=== PATIENT | female | born 1960 ===

== ENCOUNTER 2022-04-16 04:12 | Day surgery (SDC) | payer OTHER ==
[2022-04-15 14:58] VITALS: BMI 28.0
[2022-04-16] MEDS ORDERED: LIDOCAINE HCL/PF 2% SDV 5ML VIAL ONE (11:45)
[2022-04-16] MEDS ORDERED: MIDAZOLAM HCL 2 MG/2 ML SINGLE DOSE VIAL ONE (11:46)
[2022-04-16] MEDS ORDERED: PROPOFOL 20 ML ONE (11:46)
[2022-04-16] MEDS ORDERED: LIDOCAINE HCL 1%, 10 MG/ML (20ML VIAL) ONE (12:28)
[2022-04-16] MEDS ORDERED: ceFAZolin SODIUM 1 GM VIAL IVPB ONE (13:15)
[2022-04-16] MEDS ORDERED: ceFAZolin SODIUM 1 GM VIAL ONE ×2 (13:17→13:27)
[2022-04-16] MEDS ORDERED: LIDOCAINE HCL 1%, 10 MG/ML (20ML VIAL) NR ONE (13:20)
[2022-04-16] MEDS ORDERED: ONDANSETRON 4 MG/2 ML VIAL IVPUSH PRN (13:58)
[2022-04-16] MEDS ORDERED: oxyCODONE HCL 5 MG TABLET PO PRN (13:58)
[2022-04-16] MEDS ORDERED: KETOROLAC TROMETHAMINE 30 MG/1 ML VIAL IM ONE (13:59)
[2022-04-16] MEDS ORDERED: LACTATED RINGERS SOLUTION 1,000 ML IV SCH (14:00)
[2022-04-16] MEDS ORDERED: KETOROLAC TROMETHAMINE 30 MG/1 ML VIAL ONE (14:22)
[2022-04-16 16:06] VITALS: TEMP 97.8
[2022-04-16 16:13] VITALS: BP 126/80; PULSE 68; RESP 16
== END 2022-04-16 16:00 | disposition home or self-care (01) ==
LOC: JASU-SURG 04:12
PROVIDERS: ATTEND Surgery
PROC: 07B50ZX Excision of Right Axillary Lymphatic, Open Approach, Diagnostic (ICD-10-PCS; 2022-04-16)
PROC: 0HBT0ZX Excision of Right Breast, Open Approach, Diagnostic (ICD-10-PCS; principal; 2022-04-16 11:00)
DX: N60.31 Fibrosclerosis of right breast (principal); N60.81 Other benign mammary dysplasias of right breast; N64.89 Other specified disorders of breast; N63.31 Unspecified lump in axillary tail of the right breast; N63.10 Unspecified lump in the right breast, unspecified quadrant
CPT/HCPCS: 88307-TC; 94760